=== PATIENT | male | born 1945 | race Caucasian/White ===

== ENCOUNTER 2019-08-16 16:54 | Inpatient (IN) | payer MEDICARE ==
[2019-08-16 20:00] VITALS: BP 147/57
[2019-08-17] MEDS ORDERED: ATIVAN0.5 MG PO (01:05)
[2019-08-17] MEDS ORDERED: BYSTOLIC20 MG PO (01:05)
[2019-08-17] MEDS ORDERED: MIRALAX17 GM PO (01:06)
[2019-08-17] MEDS ORDERED: SEROQUEL50 MG PO (01:06)
[2019-08-17] MEDS ORDERED: CELEXA20 MG PO (01:06)
[2019-08-17] MEDS ORDERED: MULTI-DAY VITAM1 TAB PO (01:06)
[2019-08-17] MEDS ORDERED: VISTARIL25 MG PO (01:07)
[2019-08-17] MEDS ORDERED: TYLENOL ARTHRI650 MG PO (01:07)
[2019-08-17] MEDS ORDERED: ZOCOR20 MG PO (01:08)
[2019-08-17] MEDS ORDERED: NORVASC5 MG PO (01:08)
[2019-08-17] MEDS ORDERED: BAYER CHEWABLE81 MG PO (01:08)
[2019-08-17 01:31] VITALS: BP 147/57; BMI 37.4
--- NOTE | 2019-08-17 01:44 | NUR ---
PT ADMIT TO UNIT FROM [facility] IN [place]. HIS POA BEA PELAEZ VERBALLY CONSENTED TO TREATMENT. SHE CONFIRMS HE IS A DNR. HIS CODE NUMBER IS [id number]. HE IS CALM AND COOPERATIVE AT THIS TIME. SHE RELATED THAT HE USES A SPECIAL P[employer]INSONS WALKER AT THE [facility] WHERE HE CAME FROM. 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 WILL CONTINUE TO MONITOR.
--- NOTE | 2019-08-17 03:50 | NUR ---
PATIENT GIVEN ATIVAN IM FOR EXTREME ANXIETY, HE IS "WIDE EYED", HOLLERING OUT VERY LOUDLY, SHAKING THE BED RAILS. WILL MONITOR FOR EFFECTIVENESS
[2019-08-17 07:16] LABS: BASOPHILS 0.2 % (0-2); EOSINOPHILS 0.8 % (0-7); HEMATOCRIT 37.7 % (42.0-54.0); HEMOGLOBIN 12.3 g/dL (13.5-17.5); IMMATURE GRANULOCYTES 0.2 % (0-5); LYMPHOCYTES 29.4 % (15-50); MCH 29.8 pg (26.0-34.0); MCHC 32.6 g/dL (31.0-37.0); MCV 91.3 fL (80.0-100.0); MEAN PLATELET VOLUME 13.1 fL (7.4-10.4); MONOCYTES 6.8 % (2-11); NEUTROPHILS 62.6 % (40-80); PLATELET COUNT 147 10x3/uL (130-400); RBC 4.13 10x6/uL (4.20-6.10); RDW 13.3 % (11.5-14.5); WBC 6.1 10x3/uL (4.8-10.8)
[2019-08-17 08:04] LABS: ALBUMIN 3.3 g/dL (3.4-5.0); ALKALINE PHOSPHATASE 70 U/L (30-120); ALT (SGPT) 15 U/L (10-68); BILIRUBIN - TOTAL 0.48 mg/dL (0.2-1.3); CALC OSMOLALITY 281 mosm/kg (275-300); CALCIUM 8.7 mg/dL (8.5-10.1); CARBON DIOXIDE 26.1 mmol/L (21.0-32.0); CHLORIDE - SERUM 108 mmol/L (98-107); CHOL - HDL RATIO 2.7 ratio (2.3-4.9); CHOLESTEROL, TOTAL 130 mg/dL (0-200); CREATININE - SERUM 0.9 mg/dL (0.6-1.3); GLUCOSE 89 mg/dL (74-106); HDL CHOLESTEROL 48 mg/dL (32-96); LDL CHOLESTEROL 70 mg/dL (0-100); LDL-HDL RATIO 1.5 ratio (1.5-3.5); POTASSIUM - SERUM 3.4 mmol/L (3.5-5.1); PROTEIN - SERUM 6.5 g/dL (6.4-8.2); SODIUM 143 mmol/L (136-145); THYROID STIMULATING HORMONE 1.96 uIU/mL (0.36-3.74); TRIGLYCERIDE 63 mg/dL (30-200); UREA NITROGEN 8 mg/dL (7-18); eGFR NON AFRICAN AMERICAN 88 mL/min (90-120)
[2019-08-17 10:25] VITALS: BP 133/65
--- NOTE | 2019-08-17 12:00 | NUR ---
Obtained specimen for COVID, sent to lab.
--- NOTE | 2019-08-17 12:18 | NUR ---
The patient is awake and alert he is pleasant he has not shown any aggression, but he is very confused. He does not know where he is, staff have redirected and he has been calm with explaination. He is in a w/c and he needs much assistance to propel. Provide prescribed meds. The patient is compliant with meds. Continue POC.
[2019-08-17 15:21] VITALS: Wt 75.0 kg
[2019-08-17 20:42] VITALS: BP 145/62
--- NOTE | 2019-08-17 21:28 | NUR ---
PATIENT IS VERY CONFUSED, PLEASANT BUT EASILY BECOMES ANXIOUS, COMPLIANT WITH MEDS, CAN MAKE NEEDS KNOWN. WILL FOLLOW POC
[2019-08-18 09:48] VITALS: BP 121/58
--- NOTE | 2019-08-18 13:07 | NUR ---
PT IS AWAKE AND ALERT TO PERSON ONLY. PT IS VERY CONFUSED. CALM AND COOPERATIVE WITH ASSESSMENT. PRESCRIBED MEDS PROVIDED ORDERED. MED COMPLIANT. NO BEHAVIORS NOTED AT THIS TIME. REDIRECT AND REORIENT NEEDED. WILL CPOC.
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
[2019-08-18 21:08] VITALS: BP 133/52; BP 189/75
--- NOTE | 2019-08-18 23:10 | NUR ---
RECEIVED IN DAYROOM. SITTING IN A CHAIR WITH PEERS AT HIS SIDE. CALM AND COOPERATIVE WITH CARE AND ASSESSMENT. NO SIGNS OF AGGRESSION. REDIRECT AND REORIENT NEEDED. RESTING IN BED WITH EYES CLOSED AT THIS TIME. CONTINUE PLAN OF CARE.
[2019-08-19 08:37] VITALS: BP 103/53
--- NOTE | 2019-08-19 12:00 | NUR ---
RECEIVED IN HALLWAY OUTSIDE OF NURSES STATION. CALM ADN COOPERATIVE WITH CARE AND ASSESSMENT. NO COMBATIVE BEHAVIORS TODAY. REDIRECT AND REORIENT NEEDED. EATING AT THIS TIME. CONTINUE PLAN OF CARE.
[2019-08-19 20:06] VITALS: BP 100/52
[2019-08-20 03:07] LABS: RAPID PLASMA REAGIN Non Reactive (Non Reactive)
[2019-08-20 09:05] VITALS: BP 109/51
--- NOTE | 2019-08-20 12:00 | NUR ---
RECEIVED IN HALLWAY OUTSIDE OF NURSES STATION. CALM AND COOPERATIVE WITH ASSESSMENT THIS MORNING. VERY CONFUSED. REFUSED SHOWER AGAIN TODAY. CURSING AND YELLING AT STAFF. COMBATIVE. REDIRECT AND REORIENT NEEDED. EATING AT THIS TIME. CONTINUE PLAN OF CARE.
--- NOTE | 2019-08-20 13:20 | PN ---
PATIENT:XIOMY SANCHEZ MEDICAL RECORD: [id number] LOCATION:[facility] ADMISSION DATE: 08/17/19 PROGRESS NOTE DATE OF SERVICE: 08/19/2019 SUBJECTIVE: The patient's case was discussed with staff. He has no new complaint. OBJECTIVE: The patient is very disorganized with poor insight about his situation. He has not been aggressive today. ASSESSMENT: Dementia. PLAN: The patient will be maintained on current medicines, which I have reviewed. His long-term prognosis is guarded. TRANSINT:[id number] Voice Confirmation ID: [id number] DOCUMENT ID: [id number] KATELYNN LUO MD at 1320 CC: [id number] DICTATION DATE: 08/19/19 1635 INDUSTRIAL YARD BRAKE COUPLER: 08/20/19 0020 ADM IN [facility] [address] [place] [address]
--- NOTE | 2019-08-20 13:37 | NUR ---
SW NOTED PT GETTING AGGRESSIVE WITH STAFF WHO WERE ATTEMPTING TO HELP HIM REPOSITION IN THE CHAIR.
[2019-08-20 19:56] VITALS: BP 129/53
--- NOTE | 2019-08-20 22:41 | NUR ---
RECEIVED IN DAYROOM. SITTING IN A CHAIR WITH PEERS AT HIS SIDE. CALM AND COOPERATIVE WITH CAER AND ASSESSMENT. NO SIGNS OF AGGRESSION. REDIRECT AND REORIENT NEEDED. RESTING IN BED WITH EYES CLOSED AT THIS TIME. CONTINUE PLAN OF CARE.
[2019-08-21 09:57] VITALS: BP 112/49
--- NOTE | 2019-08-21 14:00 | NUR ---
RECEIVED IN HALLWAY SITTING IN DELVIS-CHAIR. CALM AND COOPERATIVE WITH CARE AND ASSESSMENT. NO AGGRESSIVE BEHAVIOR TODAY. HE STAYS TO HIMSELF A LOT. REDIRECT AND REORIENT NEEDED. COMPLIANT WITH TAKEN MEDICATIONS. CONTINUE PLAN OF CARE.
--- NOTE | 2019-08-21 14:28 | NUR ---
Nutrition Follow-up: PO intake appears to fluctuate (25-100%). Diet: Diabetic PO intake: 76% avg x 9 meals Wt: 166# (08/17) Last BM: 08/16 Labs noted: A1C 5.3 Meds noted: Miralax, vitamin D -May consider liberalizing diet (A1C 5.3). -Encourage PO intake and honor food preferences within diet restrictions. -Monitor wt. -RD following.
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
[2019-08-21 20:00] VITALS: BP 120/56
--- NOTE | 2019-08-21 23:25 | NUR ---
PATIENT IS CONFUSED, PLEASANT, NO INSIGHT, CAN MAKE SIMPLE NEEDS KNOWN. COMPLIANT WITH MEDS. WILL FOLLOW POC
[2019-08-22 10:31] VITALS: BP 114/59
--- NOTE | 2019-08-22 12:17 | PN ---
PATIENT:XIOMY SANCHEZ MEDICAL RECORD: [id number] LOCATION:[facility] ADMISSION DATE: 08/17/19 PROGRESS NOTE DATE OF SERVICE: 08/21/2019 SUBJECTIVE: The patient's case was discussed with staff. He has no new complaint. OBJECTIVE: The patient denies intent to harm himself or others. He is tolerating his medicines well. ASSESSMENT: Parkinson's related dementia. PLAN: At this point, the patient's behavior has improved and I think there is a reasonable balance of medication and medication side effect. Although he is taking 150 mg a day of Seroquel, I do not see a significant deterioration in his movement. I anticipate he could be transitioned out of the hospital soon if this level of improvement continues. TRANSINT:[id number] Voice Confirmation ID: [id number] DOCUMENT ID: [id number] KATELYNN LUO MD at 1217 CC: [id number] DICTATION DATE: 08/21/19 1600 PAGE MAKEUP SYSTEM OPERATOR: 08/22/19 0051 ADM IN [facility] [address] [place] [address]
--- NOTE | 2019-08-22 16:26 | NUR ---
PATIENT IS CONFUSED, CALM AND COOPERATIVE WITH CARE AND ASSESSMENT. HE IS ABLE TO MAKE SIMPLE NEEDS KNOWN. HE STAYS WITHDRAWN FROM PEERS. COMPLIANT WITH MEDICATIONS. REDIRECT AND REORIENT NEEDED. WILL CONTINUE PLAN OF CARE
[2019-08-22 20:04] VITALS: BP 114/54
--- NOTE | 2019-08-22 20:23 | NUR ---
RECEIVED PATIENT IN DAYROOM, EATING HIS SNACK, BEING PLEASANT, HE IS CONFUSED, HE CAN MAKE ALL OF HIS NEEDS KNOWN. HE IS TOTAL CARE. COMPLIANT WITH MEDS. WILL FOLLOW POC
--- NOTE | 2019-08-23 08:37 | NUR ---
The patient is awake and alert, he is pleasant. He has not shown aggression this am to get up out of bed. He is confused, he knows his name only, he does not know where he is or the date. He sits away from his peers, but he interacts with staff if he is spoken to. He is not one for small talk. Provide prescribed meds. The patient is compliant with meds. Continue POC.
[2019-08-23 09:55] VITALS: BP 107/50
[2019-08-23 20:00] VITALS: BP 120/51
--- NOTE | 2019-08-24 03:49 | NUR ---
B) Patient is alert and oriented to person and being in a hospital, calm and cooperative this shift, I) Administered scheduled medication s as ordered, assisted with needs, R) Mediation compliant, speaks when spoked to, P) Continue plan of care.
[2019-08-24 08:24] VITALS: BP 111/51
--- NOTE | 2019-08-24 17:03 | NUR ---
The patient is nervous today. Physical therapy came and he stood with him. He thinks he is going to fall, his spouse called and checked on him today. He is pleasant, but he is confused. He has poor insight into his situation. He has not shown any aggression, but when staff took him to toilet and dress him he yelled and screamed. He is in a w/c and he self propels. Provide prescribed meds. The patient is compliant with meds. Continue POC.
[2019-08-24 20:02] VITALS: BP 120/59
--- NOTE | 2019-08-24 21:54 | NUR ---
B.) PT IS ALERT AND ORIENTED TO SELF ONLY. HE IS ABLE TO VOICE HIS NEEDS AND WANTS. HE IS CALM AND COOPERATIVE WITH STAFF. HE USES A WHEELCHAIR TO ASSIST WITH AMBULATION. I.) PROVIDED PM MEDICATIONS PRESCRIBED. REDIRECT NEEDED. R.) COMPLIANT WITH ALL MEDICATIONS. EASY TO REDIRECT. P.) WILL CONTINUE TO MONITOR.
[2019-08-25 13:48] VITALS: BP 124/63
--- NOTE | 2019-08-25 18:12 | NUR ---
ORIENTED TO SELF.NO COMBATIVENESS OR OTHER BEHAVIORS OBSERVED.IS COMPLIANT WITH MEDS AND STAFF.PROPELLS SELF IN WHEELCHAIR.WILL CONTINUE WITH CURRENT PLAN OF CARE,MONITOR FOR CHANGES AND SAFETY.
--- NOTE | 2019-08-25 19:18 | PN ---
PATIENT:XIOMY SANCHEZ MEDICAL RECORD: [id number] LOCATION:[facility] ADMISSION DATE: 08/17/19 PROGRESS NOTE DATE OF SERVICE: 08/22/2019 SUBJECTIVE: The patient's case was discussed with staff. He has no new complaint. OBJECTIVE: The patient denies intent to harm himself or others. He is generally tolerating his medicines well. ASSESSMENT: Dementia. PLAN: The patient will be maintained on current medicines. He still has some agitated and aggressive behavior, but it seems to be limited to personal care. At this point, I would recommend he be transitioned back to the shelter as soon as that can be reasonably arranged. TRANSINT:[id number] Voice Confirmation ID: [id number] DOCUMENT ID: [id number] KATELYNN LUO MD at 1918 CC: [id number] DICTATION DATE: 08/22/19 1423 SLEEP SCIENTIST: 08/22/19 1825 ADM IN [facility] [address] [place] [address]
[2019-08-25 20:24] VITALS: BP 106/49
--- NOTE | 2019-08-25 20:27 | NUR ---
RECEIVED IN DAYROOM. SITTING IN A CHAIR WITH PEERS AT HIS SIDE. NO SIGNS OF AGGRESSION. REDIRECT AND REORIENT NEEDED. CONTINUES TO SIT CALMLY IN DAYROOM. CONTINUE PLAN OF CARE.
[2019-08-26 08:41] VITALS: BP 109/48
--- NOTE | 2019-08-26 12:52 | NUR ---
PT SITTING IN DAYROOM IN W/C WITH PEERS. AWAKE AND ALERT TO PERSON. CALM AND COOPERATIVE WITH ASSESSMENT AT THIS TIME. PTCAN BECOME COMBATIVE WITH STAFF EASILY AT TIMES. HARD TO REDIRECT AT TIMES. PT HAS BILATERAL EDEMA 4t NOTED. PT ENCOURAGED TO ELEVATE FEET. PRESCRIBED MEDS PROVIDED ORDERED. MED COMPLIANT. FALL PRECAUTIONS IN PLACE. WILL CPOC.
[2019-08-26 20:10] VITALS: BP 101/71
--- NOTE | 2019-08-26 22:34 | NUR ---
RECEIVED IN DAYROOM. SITTING IN A CHAIR WITH PEERS AT HIS SIDE. CALM AND COOPERATIVE WITH CARE AND ASSESSMENT. NO SIGNS OF AGGRESSION. REDIRECT AND REORIENT NEEEDED. RESTING IN BED WITH EYES CLOSED AT THIS TIME. CONTINUE PLAN OF CARE.
[2019-08-27 11:40] VITALS: BP 113/53
[2019-08-27 11:52] VITALS: BP 113/49
--- NOTE | 2019-08-27 12:20 | NUR ---
RECEIVED IN HALLWAY OUTSIDE OF NURSES STATION. CALM AND COOPERATIVE WITH CARE AND ASSESSMENT. NO COMBATIVE BEHAVIORS. REDIRECT AND REORIENT NEEDED. EATING AT THIS TIME. CONTINUE PLAN OF CARE.
[2019-08-27 20:53] VITALS: BP 133/61
--- NOTE | 2019-08-27 23:09 | NUR ---
RECEIVED IN DAYROOM. SITTING IN A CHAIR WITH PEERS AT HIS SIDE. CALM AND COOPERATIVE WITH CARE AND ASSESSMENT. NO SIGNS OF AGGRESSION. REDIRECT AND REROIENT NEEDED. RESTING IN BED WITH EYES CLOSED AT THIS TIME. CONTINUE PLAN OF CARE.
[2019-08-28 09:19] VITALS: BP 143/53
--- NOTE | 2019-08-28 14:40 | NUR ---
Nutrition Follow-up: Diet: Regular PO intake: ~91% average x last 9 meals Last BM: 08/28/19. Wt: 165# (08/25/19); Admit wt: 197# (08/17/19) Meds noted: miralax. No new labs. Question accuracy of admit weight. Weight difference noted, however patient has been with good PO intake since admit. Will continue to monitor PO intake and wt trend. RD following.
[2019-08-28 20:03] VITALS: BP 124/58
--- NOTE | 2019-08-29 03:43 | NUR ---
B.) PT IS ALERT AND ORIENTED TO SELF ONLY. HE RECEIVED IN THE DAYROOM SITTING IN A GERICHAIR. HE IS CALM AND COOPERATIVE. HE IS INTERACTIVE. NO AGGRESSION NOTED. HE YELLS OUT WITH CARE BUT IS VERY POLITE. I.) PROVIDED PM MEDICATIONS PRESCRIBED. REDIRECT OFTEN. R.) COMPLIANT WITH ALL MEDICATIONS. EASY TO REDIRECT. P.) WILL CONTINUE TO MONITOR.
[2019-08-29 09:36] VITALS: BP 113/54
--- NOTE | 2019-08-29 13:08 | NUR ---
The patient is alert this am, but he is sleepy this am. He is calm and pleasant. He refused to walk with physical therapy this am, they said they will come back and try after lunch. Provide prescribed meds. The patient is compliant with meds. Continue POC.
[2019-08-29 20:19] VITALS: BP 112/53
--- NOTE | 2019-08-30 00:52 | NUR ---
B.) PT IS ALERT AND ORIENTED TO SELF ONLY. HE HAS POOR INSIGHT INTO HIS SITUATION. HE IS CALM, COOPERATIVE AND PLEASANT WITH STAFF. NO AGGRESSION NOTED THIS SHIFT. I.) PROVIDED PM MEDICATIONS PRESCRIBED. REDIRECT NEEDED. R.) COMPLIANT WITH ALL MEDICATIONS. EASY TO REDIRECT. P.) WILL CONTINUE TO MONITOR.
--- NOTE | 2019-08-30 11:44 | NUR ---
The patient is awake and he spoke to the Hospice nurse Rosalba and she said he is appropriate for their admission and they will pick him up when he arrives at the facility. He is confused, he knows his name, he told Rosalba he takes his own showers and he is continent, but it is inaccurate information. Provide prescribed meds. The patient is compliant with meds. Continue POC.
--- NOTE | 2019-08-30 12:42 | NUR ---
Faxed all paperwork to Jenna at [facility] and to [facility]. [facility] and the ETA for their p/u is approximately 45 minutes. PCS form completed along with a face sheet for EMS and hard copies and belongings to transfer with the patient to Memory Care facility.
--- NOTE | 2019-08-30 14:00 | NUR ---
EMS x2 here to pick the patient up and take [facility] to the [facility] in . Staff assisted the patient onto the gurney and he is now d/c'd from assisted.
[2019-08-30 14:10] VITALS: BP 109/49
--- NOTE | 2019-08-30 14:37 | NUR ---
Attempted to call report, the nurses have changed shift. A nurse will call back shortly to receive report.
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
== END 2019-08-30 14:00 | DRG 884 ==
LOC: D.PSYCH 16:54
PROVIDERS: ADMIT Psychiatry & Neurology Psychiatry; ATTEND Psychiatry & Neurology Psychiatry
DX: F02.81 Dementia in other diseases classified elsewhere, unspecified severity, with behavioral disturbance (principal); G20 Parkinson's disease; I10 Essential (primary) hypertension; F41.8 Other specified anxiety disorders; E78.5 Hyperlipidemia, unspecified; R53.81 Other malaise; E55.9 Vitamin D deficiency, unspecified; D64.9 Anemia, unspecified; K59.00 Constipation, unspecified; M54.5 Low back pain